=== PATIENT | male | born 1995 | race Caucasian/White ===

== ENCOUNTER 2019-12-22 11:15 | Emergency (ER) | payer OTHER, SELFPAY | END 2019-12-22 12:56 | disposition home or self-care (01) | LOC: ERS 11:15 | DX: S01.81XA Laceration without foreign body of other part of head, initial encounter (principal); F07.81 Postconcussional syndrome; W22.8XXA Striking against or struck by other objects, initial encounter | CPT/HCPCS: 12011 ==

== ENCOUNTER 2020-01-08 12:13 | Emergency (ER) | payer OTHER ==
[2020-01-08] MEDS ORDERED: Metoclopramide HCl 10 MG/2 ML VIAL ONE (13:10)
[2020-01-08] MEDS ORDERED: diphenhydrAMINE 50 MG/ML VIAL ONE (13:10)
--- NOTE | 2020-01-08 13:12 | CT ---
Exam: Head CT without contrast HISTORY: Headache. Trauma 12/22/2019 COMPARISON: none FINDINGS: Hemorrhage: No intraparenchymal hemorrhage or extra-axial hematoma. Brain parenchyma: Cortical mccarthy-white matter differentiation is preserved. No mass effect or midline shift. Basilar cisterns are patent. Ventricular system: Ventricles and sulci are patent and symmetric. Calvarium: Intact. Sinuses and mastoid air cells: Adequate aeration. IMPRESSION: No acute intracranial process.
[2020-01-08] MEDS ORDERED: Ketorolac Tromethamine 30 MG/ML VIAL ONE (14:06)
== END 2020-01-08 14:29 | disposition home or self-care (01) ==
LOC: ERS 12:13
DX: S06.0X0A Concussion without loss of consciousness, initial encounter (principal); W22.8XXA Striking against or struck by other objects, initial encounter
CPT/HCPCS: 70450; 96365; 96375; J1200; J1885; J2765